=== PATIENT | female | born 1930 | race Caucasian/White ===

== ENCOUNTER → 2016-09-19 | Outpatient (CLI) | payer MEDICARE, OTHER ==
[~2016-09-19] MED LIST: ATEN1TAB38; ATOR10TA; FLUT100M7; RALO60TA10
[2016-09-19 11:44] LABS: Urine Bilirubin Negative (Negative); Urine Blood Negative /uL (Negative); Urine Color Yellow (Yellow); Urine Glucose Normal (Normal); Urine Ketone Negative (Negative); Urine Nitrite Negative (Negative); Urine Urobilinogen Normal (Negative); Urine pH 5.5 (5.0-8.0)
[2016-09-19 11:55] LABS: INR 1.02 (0.9-1.15); Partial Thromboplastin Time 25.1 sec (22.64-33.71); Prothrombin Time 10.5 sec (9.37-12.3)
[2016-09-19 12:17] LABS: Basophils # (auto) 0.1 uL; Basophils % (auto) 1.1 % (0.0-2.0); Eosinophils # (auto) 0.2 uL; Eosinophils % (auto) 2.3 % (0.0-7.0); Hemoglobin 14.5 g/dL (12.2-16.2); Lymphocytes % (auto) 25.7 % (10.0-50.0); Mean Corpuscular Hemoglobin 29.5 pg (28.0-32.0); Mean Corpuscular Hgb Conc. 32.1 g/dL (32.0-36.0); Mean Corpuscular Volume 91.9 fL (80.0-100.0); Mean Platelet Volume 7.5 fL (7.4-10.4); Monocytes % (auto) 13.2 % (0.0-12.0); Neutrophils # (auto) 4.4 uL; Neutrophils % (auto) 57.7 % (37.0-80.0); Platelet Count (auto) 229 10^3/uL (140-450); Red Cell Distribution Width 12.3 % (11.6-16.0); White Blood Cell 7.7 10^3/uL (4.4-10.8)
[2016-09-19 13:02] LABS: Potassium 4.5 mmol/L (3.5-5.1)
[2016-09-19 13:09] LABS: Albumin 3.4 g/dL (3.4-5.0); BUN/Creatinine Ratio 12.3
[2016-09-19 13:12] LABS: Bilirubin, Total 0.5 mg/dL (0.2-1.0); Total Protein 6.5 g/dL (6.4-8.2)
== END | disposition home or self-care (01) ==
LOC: LAB 10:04
PROVIDERS: ATTEND Specialist
DX: M25.129 Fistula, unspecified elbow (principal); Z01.812 Encounter for preprocedural laboratory examination; D68.318 Other hemorrhagic disorder due to intrinsic circulating anticoagulants, antibodies, or inhibitors; Z79.01 Long term (current) use of anticoagulants
CPT/HCPCS: 36415; 80053; 81003; 85025; 85610; 85730

== ENCOUNTER 2017-05-31 09:47 | Emergency (ER) | payer MEDICARE, OTHER ==
[~2017-05-31] VITALS: Ht 167.6 cm; Wt 104.3 kg
[2017-05-31 10:48] LABS: Basophils # (auto) 0 uL; Basophils % (auto) 0.6 % (0.0-2.0); Eosinophils # (auto) 0.1 uL; Eosinophils % (auto) 2.1 % (0.0-7.0); Hematocrit 45.4 % (36.0-46.0); Hemoglobin 15.2 g/dL (12.2-16.2); Lymphocytes # (auto) 1.6 uL; Lymphocytes % (auto) 23.5 % (10.0-50.0); Mean Corpuscular Hemoglobin 30.5 pg (28.0-32.0); Mean Corpuscular Hgb Conc. 33.4 g/dL (32.0-36.0); Mean Corpuscular Volume 91.3 fL (80.0-100.0); Mean Platelet Volume 6.6 fL (6.9-10.8); Monocytes # (auto) 0.7 uL; Monocytes % (auto) 10.1 % (0.0-12.0); Neutrophils # (auto) 4.2 uL; Neutrophils % (auto) 63.7 % (37.0-80.0); Platelet Count (auto) 217 10^3/uL (140-450); Red Cell Distribution Width 13.7 % (11.8-14.3); White Blood Cell 6.6 10^3/uL (4.4-10.8)
[2017-05-31 11:17] LABS: Albumin 3.7 g/dL (3.4-5.0); Alkaline Phosphatase 94 U/L (45-117); Anion Gap 5 (5-15); Aspartate Aminotransferase 17 U/L (15-37); BUN/Creatinine Ratio 13.1; Bilirubin, Total 0.6 mg/dL (0.2-1.0); Blood Urea Nitrogen 13 mg/dL (7-18); Calcium 9.3 mg/dL (8.5-10.1); Carbon Dioxide 31 mmol/L (21-32); Chloride 105 mmol/L (98-107); GFR African American 69 mL/min; GFR Non-African American 57 mL/min; Glucose 100 mg/dL (74-106); Magnesium 2.4 mg/dL (1.6-2.6); Potassium 4.3 mmol/L (3.5-5.1); Sodium 141 mmol/L (136-145); Total Protein 6.9 g/dL (6.4-8.2)
[2017-05-31 14:55] LABS: Temperature: 21.9 C (20.0-25.0)
[2017-05-31 16:15] VITALS: BP 169/80
== END 2017-05-31 17:23 | disposition left against medical advice (07) ==
LOC: ER 09:47
DX: R07.9 Chest pain, unspecified (principal); J90 Pleural effusion, not elsewhere classified; I11.0 Hypertensive heart disease with heart failure; J44.9 Chronic obstructive pulmonary disease, unspecified; M81.0 Age-related osteoporosis without current pathological fracture; I50.42 Chronic combined systolic (congestive) and diastolic (congestive) heart failure; Z88.1 Allergy status to other antibiotic agents; Z88.8 Allergy status to other drugs, medicaments and biological substances; E78.5 Hyperlipidemia, unspecified
CPT/HCPCS: 36415; 71020; 80053; 83735; 83880; 84484; 85025; 93005

== ENCOUNTER → 2017-12-16 | Outpatient (CLI) | payer MEDICARE, OTHER ==
[2017-12-16 10:30] LABS: BUN/Creatinine Ratio 14.9; Calcium 9.5 mg/dL (8.5-10.1); Potassium 4.8 mmol/L (3.5-5.1)
== END | disposition home or self-care (01) ==
LOC: LAB 09:28
PROVIDERS: ATTEND Internal Medicine Cardiovascular Disease
DX: E87.5 Hyperkalemia (principal); J44.9 Chronic obstructive pulmonary disease, unspecified; I12.9 Hypertensive chronic kidney disease with stage 1 through stage 4 chronic kidney disease, or unspecified chronic kidney disease; E11.22 Type 2 diabetes mellitus with diabetic chronic kidney disease; N18.3 Chronic kidney disease, stage 3 (moderate); Z79.01 Long term (current) use of anticoagulants
CPT/HCPCS: 36415; 80048

== ENCOUNTER → 2018-06-02 | Outpatient (CLI) | payer MEDICARE, OTHER ==
[2018-06-02 09:25] LABS: Albumin 3.1 g/dL (3.4-5.0); Calcium 8.3 mg/dL (8.5-10.1); Potassium 4.9 mmol/L (3.5-5.1)
[2018-06-02 09:27] LABS: BUN/Creatinine Ratio 11.6
[2018-06-02 09:29] LABS: Bilirubin, Total 0.6 mg/dL (0.2-1.0); Total Protein 6.3 g/dL (6.4-8.2)
== END | disposition home or self-care (01) ==
LOC: LAB 08:34
PROVIDERS: ATTEND Internal Medicine Cardiovascular Disease
DX: I11.0 Hypertensive heart disease with heart failure (principal); I50.30 Unspecified diastolic (congestive) heart failure; E66.9 Obesity, unspecified; H34.01 Transient retinal artery occlusion, right eye; I73.9 Peripheral vascular disease, unspecified; E78.00 Pure hypercholesterolemia, unspecified; I08.0 Rheumatic disorders of both mitral and aortic valves; I25.10 Atherosclerotic heart disease of native coronary artery without angina pectoris
CPT/HCPCS: 36415; 80053; 80061

== ENCOUNTER → 2019-11-02 | Outpatient (CLI) | payer MEDICARE, OTHER ==
[~2019-11-02] MED LIST changes: +ALBUAER3 IN; +ATEN-60 PO; -ATEN1TAB38; -ATOR10TA; +ATOR10TA52 PO; +COEN100C37 PO; +DOX100T PO; +PANT40TA2 PO; +PRAS10TA8 PO; -RALO60TA10; +VITA400T4 PO
[2019-11-02 09:25] LABS: Basophils # (auto) 0 10 ^3/uL (0-0.2); Basophils % (auto) 0.6 % (0.0-2.0); Eosinophils # (auto) 0.2 10 ^3/uL (0-0.8); Eosinophils % (auto) 2.6 % (0.0-7.0); Hematocrit 41.3 % (36.0-46.0); Hemoglobin 13.6 g/dL (12.2-16.2); Lymphocytes # (auto) 1.5 10 ^3/uL (0.4-5.4); Lymphocytes % (auto) 25.5 % (10.0-50.0); Mean Corpuscular Hemoglobin 29.9 pg (28.0-32.0); Mean Corpuscular Volume 90.4 fL (80.0-100.0); Monocytes # (auto) 0.7 10 ^3/uL (0-1.3); Monocytes % (auto) 11.5 % (0.0-12.0); Neutrophils # (auto) 3.5 10 ^3/uL (1.6-8.6); Neutrophils % (auto) 59.8 % (37.0-80.0); Platelet Count (auto) 204 10^3/uL (140-450); Red Blood Cells 4.57 10^6/uL (4.0-5.20); Red Cell Distribution Width 14.2 % (11.8-14.3); White Blood Cell 5.8 10^3/uL (4.4-10.8)
[2019-11-02 10:24] LABS: Potassium 4.6 mmol/L (3.5-5.1)
[2019-11-02 10:33] LABS: Albumin 3.5 g/dL (3.4-5.0); BUN/Creatinine Ratio 15.5; Bilirubin, Total 0.6 mg/dL (0.2-1.0); Calcium 9.4 mg/dL (8.5-10.1); Total Protein 6.6 g/dL (6.4-8.2)
== END | disposition home or self-care (01) ==
LOC: LAB 08:42
PROVIDERS: ATTEND Internal Medicine Cardiovascular Disease
DX: I11.0 Hypertensive heart disease with heart failure (principal); I50.30 Unspecified diastolic (congestive) heart failure; I73.9 Peripheral vascular disease, unspecified; I35.1 Nonrheumatic aortic (valve) insufficiency; I27.20 Pulmonary hypertension, unspecified; I34.0 Nonrheumatic mitral (valve) insufficiency; E78.00 Pure hypercholesterolemia, unspecified; R06.02 Shortness of breath; R07.9 Chest pain, unspecified; R79.89 Other specified abnormal findings of blood chemistry
CPT/HCPCS: 36415; 80053; 80061; 84443; 85025

== ENCOUNTER → 2020-02-29 | Outpatient (CLI) | payer MEDICARE, OTHER ==
[2020-02-29 09:00] LABS: Basophils # (auto) 0.1 10 ^3/uL (0-0.2); Basophils % (auto) 1.4 % (0.0-2.0); Eosinophils # (auto) 0.1 10 ^3/uL (0-0.8); Eosinophils % (auto) 2.6 % (0.0-7.0); Hematocrit 41.5 % (36.0-46.0); Hemoglobin 13.6 g/dL (12.2-16.2); Lymphocytes # (auto) 1.4 10 ^3/uL (0.4-5.4); Mean Corpuscular Hemoglobin 30.1 pg (28.0-32.0); Mean Corpuscular Hgb Conc. 32.7 g/dL (32.0-36.0); Mean Corpuscular Volume 92.1 fL (80.0-100.0); Monocytes # (auto) 0.6 10 ^3/uL (0-1.3); Monocytes % (auto) 12.2 % (0.0-12.0); Neutrophils % (auto) 56.8 % (37.0-80.0); Platelet Count (auto) 194 10^3/uL (140-450); Red Cell Distribution Width 13.8 % (11.8-14.3); White Blood Cell 5.2 10^3/uL (4.4-10.8)
[2020-02-29 09:22] LABS: Albumin 3.4 g/dL (3.4-5.0); Potassium 4.8 mmol/L (3.5-5.1)
[2020-02-29 09:31] LABS: BUN/Creatinine Ratio 14.3; Bilirubin, Total 0.5 mg/dL (0.2-1.0); Calcium 9.6 mg/dL (8.5-10.1); Total Protein 6.6 g/dL (6.4-8.2)
== END | disposition home or self-care (01) ==
LOC: LAB 08:26
PROVIDERS: ATTEND Internal Medicine Cardiovascular Disease
DX: I11.0 Hypertensive heart disease with heart failure (principal); I50.30 Unspecified diastolic (congestive) heart failure; I73.9 Peripheral vascular disease, unspecified; I27.20 Pulmonary hypertension, unspecified; E78.00 Pure hypercholesterolemia, unspecified; R06.02 Shortness of breath; R07.9 Chest pain, unspecified
CPT/HCPCS: 36415; 80053; 80061; 85025

== ENCOUNTER → 2020-05-30 | Outpatient (CLI) | payer MEDICARE, OTHER ==
[2020-05-30 09:57] LABS: Basophils # (auto) 0 10 ^3/uL (0-0.2); Basophils % (auto) 0.5 % (0.0-2.0); Eosinophils # (auto) 0.2 10 ^3/uL (0-0.8); Eosinophils % (auto) 3.1 % (0.0-7.0); Hematocrit 40.8 % (36.0-46.0); Hemoglobin 13.6 g/dL (12.2-16.2); Lymphocytes # (auto) 1.5 10 ^3/uL (0.4-5.4); Lymphocytes % (auto) 25.3 % (10.0-50.0); Mean Corpuscular Hemoglobin 30.5 pg (28.0-32.0); Mean Corpuscular Hgb Conc. 33.3 g/dL (32.0-36.0); Mean Corpuscular Volume 91.5 fL (80.0-100.0); Monocytes # (auto) 0.7 10 ^3/uL (0-1.3); Monocytes % (auto) 12.1 % (0.0-12.0); Neutrophils # (auto) 3.5 10 ^3/uL (1.6-8.6); Platelet Count (auto) 197 10^3/uL (140-450); Red Blood Cells 4.45 10^6/uL (4.0-5.20); Red Cell Distribution Width 13.2 % (11.8-14.3)
[2020-05-30 10:22] LABS: Albumin 3.4 g/dL (3.4-5.0); Calcium 9.3 mg/dL (8.5-10.1); Potassium 4.7 mmol/L (3.5-5.1)
[2020-05-30 10:29] LABS: BUN/Creatinine Ratio 22.7; Bilirubin, Total 0.4 mg/dL (0.2-1.0); Total Protein 6.2 g/dL (6.4-8.2)
== END | disposition home or self-care (01) ==
LOC: LAB 09:35
PROVIDERS: ATTEND Internal Medicine Cardiovascular Disease
DX: I11.0 Hypertensive heart disease with heart failure (principal); I50.30 Unspecified diastolic (congestive) heart failure; R06.02 Shortness of breath; I73.9 Peripheral vascular disease, unspecified; I35.1 Nonrheumatic aortic (valve) insufficiency; E78.00 Pure hypercholesterolemia, unspecified; I35.0 Nonrheumatic aortic (valve) stenosis; I27.20 Pulmonary hypertension, unspecified; R07.9 Chest pain, unspecified; R79.89 Other specified abnormal findings of blood chemistry; E55.9 Vitamin D deficiency, unspecified; M81.0 Age-related osteoporosis without current pathological fracture
CPT/HCPCS: 36415; 80053; 80061; 82306; 83880; 84443; 85025

== ENCOUNTER → 2020-12-29 | Outpatient (CLI) | payer MEDICARE, OTHER ==
[2020-12-29 09:55] LABS: Basophils # (auto) 0 10 ^3/uL (0-0.2); Basophils % (auto) 0.5 % (0.0-2.0); Eosinophils # (auto) 0.1 10 ^3/uL (0-0.8); Eosinophils % (auto) 2.1 % (0.0-7.0); Hematocrit 40.9 % (36.0-46.0); Hemoglobin 13.3 g/dL (12.2-16.2); Lymphocytes # (auto) 1.7 10 ^3/uL (0.4-5.4); Lymphocytes % (auto) 27.1 % (10.0-50.0); Mean Corpuscular Hemoglobin 29.5 pg (28.0-32.0); Mean Corpuscular Hgb Conc. 32.7 g/dL (32.0-36.0); Mean Corpuscular Volume 90.2 fL (80.0-100.0); Monocytes # (auto) 0.7 10 ^3/uL (0-1.3); Monocytes % (auto) 10.5 % (0.0-12.0); Neutrophils # (auto) 3.8 10 ^3/uL (1.6-8.6); Neutrophils % (auto) 59.8 % (37.0-80.0); Platelet Count (auto) 226 10^3/uL (140-450); Red Blood Cells 4.53 10^6/uL (4.0-5.20); Red Cell Distribution Width 13.8 % (11.8-14.3); White Blood Cell 6.4 10^3/uL (4.4-10.8)
[2020-12-29 10:11] LABS: Albumin 3.5 g/dL (3.4-5.0); Calcium 9.3 mg/dL (8.5-10.1); Potassium 4.5 mmol/L (3.5-5.1)
[2020-12-29 10:16] LABS: BUN/Creatinine Ratio 17.2; Bilirubin, Total 0.4 mg/dL (0.2-1.0); Total Protein 6.7 g/dL (6.4-8.2)
== END | disposition home or self-care (01) ==
LOC: LAB 09:07
PROVIDERS: ATTEND Internal Medicine Cardiovascular Disease
DX: I11.0 Hypertensive heart disease with heart failure (principal); I50.30 Unspecified diastolic (congestive) heart failure; H34.01 Transient retinal artery occlusion, right eye; I73.9 Peripheral vascular disease, unspecified; E78.00 Pure hypercholesterolemia, unspecified; I35.1 Nonrheumatic aortic (valve) insufficiency; I34.0 Nonrheumatic mitral (valve) insufficiency; I35.0 Nonrheumatic aortic (valve) stenosis; I27.20 Pulmonary hypertension, unspecified; R07.9 Chest pain, unspecified; J02.9 Acute pharyngitis, unspecified; R06.02 Shortness of breath
CPT/HCPCS: 36415; 80053; 80061; 84443; 85025

== ENCOUNTER → 2021-03-26 | Outpatient (CLI) | payer MEDICARE, OTHER ==
[2021-03-26 09:19] LABS: Basophils # (auto) 0 10 ^3/uL (0-0.2); Basophils % (auto) 0.8 % (0.0-2.0); Eosinophils # (auto) 0.1 10 ^3/uL (0-0.8); Eosinophils % (auto) 1.7 % (0.0-7.0); Hematocrit 39.8 % (36.0-46.0); Hemoglobin 13.4 g/dL (12.2-16.2); Lymphocytes # (auto) 1.6 10 ^3/uL (0.4-5.4); Lymphocytes % (auto) 27.8 % (10.0-50.0); Mean Corpuscular Hemoglobin 30.6 pg (28.0-32.0); Mean Corpuscular Hgb Conc. 33.7 g/dL (32.0-36.0); Mean Corpuscular Volume 90.7 fL (80.0-100.0); Monocytes # (auto) 0.7 10 ^3/uL (0-1.3); Monocytes % (auto) 12.1 % (0.0-12.0); Neutrophils # (auto) 3.4 10 ^3/uL (1.6-8.6); Neutrophils % (auto) 57.6 % (37.0-80.0); Nucleated Red Blood Cells % 0.1 %; Red Blood Cells 4.39 10^6/uL (4.0-5.20); Red Cell Distribution Width 13.9 % (11.8-14.3); White Blood Cell 5.8 10^3/uL (4.4-10.8)
[2021-03-26 09:45] LABS: Potassium 4.5 mmol/L (3.5-5.1)
[2021-03-26 09:55] LABS: Albumin 3.2 g/dL (3.4-5.0); BUN/Creatinine Ratio 16.5; Bilirubin, Total 0.6 mg/dL (0.2-1.0); Calcium 9.4 mg/dL (8.5-10.1); Total Protein 6.9 g/dL (6.4-8.2)
== END | disposition home or self-care (01) ==
LOC: LAB 08:34
PROVIDERS: ATTEND Internal Medicine Cardiovascular Disease
DX: I11.0 Hypertensive heart disease with heart failure (principal); I50.30 Unspecified diastolic (congestive) heart failure; E78.00 Pure hypercholesterolemia, unspecified; R06.02 Shortness of breath; R79.9 Abnormal finding of blood chemistry, unspecified
CPT/HCPCS: 36415; 80053; 80061; 83880; 85025

== ENCOUNTER → 2021-08-30 | Outpatient (CLI) | payer MEDICARE, OTHER ==
[2021-08-30 13:49] LABS: Basophils # (auto) 0 10 ^3/uL (0-0.2); Basophils % (auto) 0.6 % (0.0-2.0); Eosinophils # (auto) 0.3 10 ^3/uL (0-0.8); Hematocrit 37.9 % (36.0-46.0); Hemoglobin 12.7 g/dL (12.2-16.2); Lymphocytes # (auto) 1.2 10 ^3/uL (0.4-5.4); Lymphocytes % (auto) 17.6 % (10.0-50.0); Mean Corpuscular Hemoglobin 29.9 pg (28.0-32.0); Mean Corpuscular Hgb Conc. 33.5 g/dL (32.0-36.0); Mean Corpuscular Volume 89.2 fL (80.0-100.0); Monocytes # (auto) 0.6 10 ^3/uL (0-1.3); Monocytes % (auto) 8.7 % (0.0-12.0); Neutrophils # (auto) 4.5 10 ^3/uL (1.6-8.6); Neutrophils % (auto) 68.1 % (37.0-80.0); Red Blood Cells 4.25 10^6/uL (4.0-5.20); White Blood Cell 6.6 10^3/uL (4.4-10.8)
[2021-08-30 14:26] LABS: Urine Bacteria FEW /hpf (None Seen); Urine Blood Negative /uL (Negative); Urine Specific Gravity 1.017 (1.001-1.035); Urine WBC 4 /hpf (0 - 5)
[2021-08-30 14:54] LABS: BUN/Creatinine Ratio 17.5; Calcium 9.3 mg/dL (8.5-10.1); Potassium 4.3 mmol/L (3.5-5.1)
== END | disposition home or self-care (01) ==
LOC: LAB 13:21
DX: I11.0 Hypertensive heart disease with heart failure (principal); E11.9 Type 2 diabetes mellitus without complications; R06.02 Shortness of breath; R79.9 Abnormal finding of blood chemistry, unspecified; N39.0 Urinary tract infection, site not specified
CPT/HCPCS: 36415; 80048; 81001; 83880; 85025; 87086

== ENCOUNTER → 2021-10-01 | Outpatient (CLI) | payer MEDICARE, OTHER ==
[2021-10-01 11:56] LABS: INR 1.06 (0.9-1.15)
[2021-10-01 12:26] LABS: BUN/Creatinine Ratio 11.7; Calcium 9.7 mg/dL (8.5-10.1); Potassium 3.9 mmol/L (3.5-5.1)
== END | disposition home or self-care (01) ==
LOC: LAB 09:42
PROVIDERS: ATTEND Internal Medicine Cardiovascular Disease
DX: I50.30 Unspecified diastolic (congestive) heart failure (principal); R06.02 Shortness of breath; R79.9 Abnormal finding of blood chemistry, unspecified; R79.89 Other specified abnormal findings of blood chemistry; Z79.01 Long term (current) use of anticoagulants; Z79.899 Other long term (current) drug therapy
CPT/HCPCS: 36415; 80048; 83880; 85610; 87086

== ENCOUNTER → 2021-10-15 | Outpatient (CLI) | payer MEDICARE, OTHER ==
[2021-10-15 11:55] LABS: INR 1.22 (0.9-1.15)
== END | disposition home or self-care (01) ==
LOC: LAB 10:35
PROVIDERS: ATTEND Internal Medicine Cardiovascular Disease
DX: I48.0 Paroxysmal atrial fibrillation (principal); Z79.01 Long term (current) use of anticoagulants
CPT/HCPCS: 36415; 85610

== ENCOUNTER → 2021-10-22 | Outpatient (CLI) | payer MEDICARE, OTHER ==
[2021-10-22 09:36] LABS: INR 1.21 (0.9-1.15); Partial Thromboplastin Time 27.9 sec (23.6-33.0)
== END | disposition home or self-care (01) ==
LOC: LAB 09:04
PROVIDERS: ATTEND Internal Medicine Cardiovascular Disease
DX: I48.0 Paroxysmal atrial fibrillation (principal); Z79.01 Long term (current) use of anticoagulants
CPT/HCPCS: 36415; 85610; 85730

== ENCOUNTER → 2021-10-29 | Outpatient (CLI) | payer MEDICARE, OTHER ==
[2021-10-29 11:02] LABS: Potassium 4.3 mmol/L (3.5-5.1)
[2021-10-29 11:11] LABS: BUN/Creatinine Ratio 14.4; Calcium 9.4 mg/dL (8.5-10.1)
[2021-10-29 11:23] LABS: Basophils # (auto) 0 10 ^3/uL (0-0.2); Basophils % (auto) 0.5 % (0.0-2.0); Eosinophils # (auto) 0.2 10 ^3/uL (0-0.8); Hematocrit 35.8 % (36.0-46.0); Hemoglobin 11.8 g/dL (12.2-16.2); Lymphocytes # (auto) 1.2 10 ^3/uL (0.4-5.4); Mean Corpuscular Hemoglobin 28.6 pg (28.0-32.0); Mean Corpuscular Hgb Conc. 32.8 g/dL (32.0-36.0); Mean Corpuscular Volume 87.2 fL (80.0-100.0); Monocytes # (auto) 0.6 10 ^3/uL (0-1.3); Monocytes % (auto) 10.6 % (0.0-12.0); Neutrophils # (auto) 3.7 10 ^3/uL (1.6-8.6); Neutrophils % (auto) 64.9 % (37.0-80.0); Red Blood Cells 4.11 10^6/uL (4.0-5.20); Red Cell Distribution Width 14.8 % (11.8-14.3); White Blood Cell 5.7 10^3/uL (4.4-10.8)
== END | disposition home or self-care (01) ==
LOC: LAB 09:10
PROVIDERS: ATTEND Internal Medicine Cardiovascular Disease
DX: I08.0 Rheumatic disorders of both mitral and aortic valves (principal); I11.0 Hypertensive heart disease with heart failure; I50.30 Unspecified diastolic (congestive) heart failure; H34.01 Transient retinal artery occlusion, right eye; E66.9 Obesity, unspecified; I73.9 Peripheral vascular disease, unspecified; E78.00 Pure hypercholesterolemia, unspecified; J02.9 Acute pharyngitis, unspecified; I27.20 Pulmonary hypertension, unspecified; Z12.31 Encounter for screening mammogram for malignant neoplasm of breast; R48.0 Dyslexia and alexia; R13.10 Dysphagia, unspecified; R32 Unspecified urinary incontinence; R19.7 Diarrhea, unspecified
CPT/HCPCS: 36415; 80048; 83880; 85025